=== PATIENT | female | born 1990 | race African-American/Black ===

== ENCOUNTER 2017-10-08 23:18 | Emergency (ER) | payer OTHER, MEDICAID ==
[2017-10-09] MEDS ORDERED: IBUPROFEN 600 MG TABLET PO ONE (00:53)
[2017-10-09] MEDS ORDERED: ACETAMINOPHEN 325 MG TABLET PO ONE (01:23)
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
[2017-10-09 03:15] VITALS: BP 155/92
== END 2017-10-09 03:15 | disposition home or self-care (01) ==
LOC: ER 23:18
DX: S60.222A Contusion of left hand, initial encounter (principal); S89.92XA Unspecified injury of left lower leg, initial encounter; R09.89 Other specified symptoms and signs involving the circulatory and respiratory systems; M79.642 Pain in left hand; M25.562 Pain in left knee; V49.50XA Passenger injured in collision with unspecified motor vehicles in traffic accident, initial encounter; Z91.013 Allergy to seafood
CPT/HCPCS: 99284; 71045; 73120; 73562; L1830

== ENCOUNTER → 2017-10-12 | Outpatient (CLI) | payer MEDICAID ==
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
== END ==
LOC: OD 14:02
PROVIDERS: ATTEND Nurse Practitioner Family
DX: R07.89 Other chest pain (principal); M79.602 Pain in left arm
CPT/HCPCS: 71046

== ENCOUNTER → 2017-10-25 | Outpatient (CLI) | payer MEDICAID ==
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
== END ==
LOC: OD 10:38
PROVIDERS: ATTEND Nurse Practitioner Family
DX: M79.605 Pain in left leg (principal)

== ENCOUNTER → 2017-11-04 | Outpatient (CLI) | payer MEDICAID ==
--- NOTE | 2017-11-05 07:41 | XCELERA REPORT ---
[address] [address] Lower Extremity Venous Evaluation Name: ISAEL GARCIA Age: 27 yrs Gender: Female : 1990 Patient Status: Outpatient Patient Location: Study Date: 11/04/2017 03:21 PM Procedure: Color flow and duplex imaging bilaterally of the veins of the lower extremities as well as the Common Femoral veins. Reason For Study: PAIN SWELLING Ordering Physician: BILL JOHNSON Performed By: Salome Armstrong Right Sided Venous Evaluation Normal vessel filling wall to wall, compression and augmentation as well as Colour flow down to the infrageniculate veins. Left Sided Venous Evaluation Normal vessel filling wall to wall, compression and augmentation as well as Colour flow down to the infrageniculate veins. Interpretation Summary No duplex evidence of DVT or obstruction in the bilateral lower extremities. : BILL JOHNSON > Stephane Antunez
== END ==
LOC: SP 14:55
PROVIDERS: ATTEND Nurse Practitioner Family
DX: M79.605 Pain in left leg (principal)
CPT/HCPCS: 93970

== ENCOUNTER → 2018-12-12 | Outpatient (CLI) | payer MEDICAID | LOC: OD 16:09 | PROVIDERS: ATTEND Nurse Practitioner Acute Care | DX: N39.0 Urinary tract infection, site not specified (principal) | CPT/HCPCS: 87086; 87088; 87186 ==